=== PATIENT | female | born 1980 | race Two or more races ===

== ENCOUNTER 2017-04-02 21:27 | Emergency (ER) | payer BC ==
[~2017-04-02] VITALS: Ht 170.2 cm; Wt 57.6 kg
[2017-04-02 21:32] VITALS: BP 126/81
[2017-04-02] MEDS ORDERED: ONDANSETRON 4 MG TAB.RAPDIS ONE (21:53)
[2017-04-02] MEDS ORDERED: KETOROLAC TROMETHAMINE INJ 60 MG/2 ML VIAL IM ONE ×2 (21:53→22:00)
[2017-04-02] MEDS ORDERED: ONDANSETRON 4 MG TAB.RAPDIS SL ONE (22:00)
== END 2017-04-02 22:42 | disposition home or self-care (01) ==
LOC: ER 21:33
DX: R51 Headache (principal); Z90.89 Acquired absence of other organs
CPT/HCPCS: 96372; 99283; A4606; J1885; Q0162; Z7610

== ENCOUNTER 2019-04-21 20:26 | Emergency (ER) | payer BC ==
[~2019-04-21] VITALS: Ht 170.2 cm; Wt 51.7 kg
--- NOTE | 2019-04-21 20:53 | NUR ---
IV LINE OBTAINED ON R AC 20G. BLOOD DRAWN, URINE COLLECTED AND GIVEN TO HORSE TREKKING GUIDE AT BEDSIDE. EKG WAS DONE BY EMT
[2019-04-21 20:56] LABS: BASOPHILS % (AUTO) 0.5 % (0.0-2.0); EOSINOPHILS % (AUTO) 0.8 % (0.0-6.0); HEMATOCRIT 40 % (33-45); HEMOGLOBIN 13.2 g/dL (11.5-14.8); LYMPHOCYTES # (AUTO) 1.9 /CMM (0.8-4.8); LYMPHOCYTES % (AUTO) 26.9 % (20.0-44.0); MEAN CORPUSCULAR HGB CONC 33 g/dl (31.0-36.0); MEAN CORPUSCULAR VOLUME 94 fL (82-100); MONOCYTES # (AUTO) 0.4 /CMM (0.1-1.30); MONOCYTES % (AUTO) 5.5 % (2.0-12.0); NEUTROPHILS # (AUTO) 4.7 /CMM (1.8-8.9); NEUTROPHILS % (AUTO) 66.3 % (43.0-81.0); PLATELET COUNT (AUTO) 306 /CMM (150-450); RED BLOOD CELL COUNT(AUTO) 4.21 MIL/uL (4.0-5.2); WHITE BLOOD COUNT (AUTO) 7.1 K/uL (4.3-11.0)
--- NOTE | 2019-04-21 20:57 | NUR ---
BIB SELF WITH MOTHER FROM HOME. TO ER BED 1. AAOX4. NO RESP DISTRESS NOTED. BREATHING EVEN AND UNLABORED. AMBULATORY. C/O INTERMITENT CHEST PAIN X 4 DAYS. PAIN IS MID CHEST SHARP SHOOTING PAIN. PT ALSO, REPORT FEELING OF NUMBNESS ON HER L ARM. PT APPEARS ANXIOUS. PLACED ON MONITOR. MD AT BEDSIDE FOR YOVANI
[2019-04-21] MEDS ORDERED: IV NS 0.9% 1,000 ML BAG IV ONE (21:00)
[2019-04-21 21:04] LABS: CALCIUM, SERUM 9.6 mg/dL (8.5-10.1); CARBON DIOXIDE 28 mmol/L (21-32); CHLORIDE 103 mmol/L (98-107); CREATININE 0.9 mg/dL (0.6-1.3); GLUCOSE 99 mg/dL (74-106); POTASSIUM 3.7 mmol/L (3.5-5.1); SODIUM SERUM 140 mmol/L (136-145); UREA NITROGEN, BLOOD 16 mg/dL (7-18)
[2019-04-21 21:48] LABS: D-DIMER 0.19 mg/L(FEU (0.17-0.50)
[2019-04-21 22:36] VITALS: BP 118/70
--- NOTE | 2019-04-21 22:37 | NUR ---
IV removed. Catheter intact and site benign. Pressure and 4x4 applied to site. No bleeding noted.Patient discharged to home in stable condition. Written and verbal after care instructions given. Patient verbalizes understanding of instruction. Pt ambulatory with a steady gait
== END 2019-04-21 22:38 | disposition home or self-care (01) ==
LOC: ER 20:30
DX: R07.89 Other chest pain (principal); R20.2 Paresthesia of skin; R42 Dizziness and giddiness; F41.9 Anxiety disorder, unspecified; Z90.89 Acquired absence of other organs
CPT/HCPCS: 36415; 71045; 80048; 84484; 84703; 85025; 85378; 85730; 93005; 96360; 99284; J7030

== ENCOUNTER 2019-04-28 21:06 | Emergency (ER) | payer BC ==
[~2019-04-28] VITALS: Ht 170.2 cm; Wt 53.1 kg
--- NOTE | 2019-04-28 21:33 | NUR ---
bib family for c/o SOB. pt seems very anxious. holding o2 sat of 99% on r/a currently. vss
[2019-04-28] MEDS ORDERED: IV NS 0.9% 1,000 ML BAG IV ONE (22:00)
[2019-04-28 22:03] LABS: BASOPHILS % (AUTO) 0.4 % (0.0-2.0); EOSINOPHILS % (AUTO) 0.2 % (0.0-6.0); HEMATOCRIT 43 % (33-45); HEMOGLOBIN 14.5 g/dL (11.5-14.8); LYMPHOCYTES # (AUTO) 1.8 /CMM (0.8-4.8); LYMPHOCYTES % (AUTO) 35.6 % (20.0-44.0); MEAN CORPUSCULAR HGB CONC 34 g/dl (31.0-36.0); MEAN CORPUSCULAR VOLUME 93 fL (82-100); MONOCYTES # (AUTO) 0.4 /CMM (0.1-1.30); MONOCYTES % (AUTO) 8.2 % (2.0-12.0); NEUTROPHILS # (AUTO) 2.9 /CMM (1.8-8.9); NEUTROPHILS % (AUTO) 55.6 % (43.0-81.0); PLATELET COUNT (AUTO) 341 /CMM (150-450); RED BLOOD CELL COUNT(AUTO) 4.57 MIL/uL (4.0-5.2); WHITE BLOOD COUNT (AUTO) 5.2 K/uL (4.3-11.0)
[2019-04-28 22:13] LABS: CALCIUM, SERUM 10.5 mg/dL (8.5-10.1); CARBON DIOXIDE 28 mmol/L (21-32); CHLORIDE 104 mmol/L (98-107); GLUCOSE 88 mg/dL (74-106); POTASSIUM 3.6 mmol/L (3.5-5.1); SODIUM SERUM 141 mmol/L (136-145); UREA NITROGEN, BLOOD 6 mg/dL (7-18)
[2019-04-28 22:14] LABS: APPEARANCE,URINE Slightly Cloudy (CLEAR); BILIRUBIN,URINE Negative (NEGATIVE); BLOOD, URINE Negative Ery/uL (NEGATIVE); COLOR,URINE Light yellow (YELLOW); KETONES,URINE Negative (NEGATIVE); LEUKOCYTE ESTERASE ,URINE Negative (NEGATIVE); NITRITE, URINE Negative (NEGATIVE); PROTEIN,URINE Negative (NEGATIVE); UGLUCOSE Negative (NEGATIVE); UROBILINOGEN,URINE 0.2 EU/dL (0.2)
[2019-04-28 22:19] LABS: ALANINE AMINOTRANSFERASE 25 U/L (12-78); ALKALINE PHOSPHATASE 51 U/L (46-116); ASPARTATE AMINOTRANSFERASE 21 U/L (15-37); BILIRUBIN,DIRECT 0.1 mg/dL (0.0-0.2); BILIRUBIN,TOTAL 0.4 mg/dL (0.2-1.0)
--- NOTE | 2019-04-28 23:53 | NUR ---
dc IV removed. Catheter intact and site benign. Pressure and 4x4 applied to site. No bleeding noted.Patient discharged to home in stable condition. Rx and Written and verbal after care instructions given. Patient verbalizes understanding of instruction.
[2019-04-29 00:06] VITALS: BP 117/75
== END 2019-04-28 23:50 | disposition home or self-care (01) ==
LOC: ER 21:09
DX: F41.9 Anxiety disorder, unspecified (principal); Z90.89 Acquired absence of other organs; Z87.440 Personal history of urinary (tract) infections
CPT/HCPCS: 36415; 71045; 80048; 80076; 81001; 83690; 84484; 84703; 85025; 87086; 93005; 99284; J7030; 81000-TC

== ENCOUNTER 2019-12-07 09:27 | Emergency (ER) | payer BC ==
[~2019-12-07] VITALS: Ht 170.2 cm; Wt 51.7 kg
[2019-12-07 09:35] VITALS: BP 132/94
== END 2019-12-07 09:50 | disposition home or self-care (01) ==
LOC: ER 09:29
DX: B34.2 Coronavirus infection, unspecified (principal); F41.9 Anxiety disorder, unspecified; Z90.89 Acquired absence of other organs

== ENCOUNTER 2019-12-16 18:09 | Emergency (ER) | payer BC ==
[~2019-12-16] VITALS: Ht 170.2 cm; Wt 51.3 kg
[2019-12-16 18:15] VITALS: BP 133/63
== END 2019-12-16 19:23 | disposition home or self-care (01) ==
LOC: ER 18:19
DX: U07.1 COVID-19 (principal); R05 Cough; F41.9 Anxiety disorder, unspecified
CPT/HCPCS: 71045-TC